=== PATIENT | male | born 1930 | race Caucasian/White ===

== ENCOUNTER 2017-01-28 12:45 | Emergency (ER) | payer OTHER ==
[2017-01-28] MEDS ORDERED: OXYMETAZOLINE HCL 150 SPRAY BTL ONE (13:17)
[2017-01-28] MEDS ORDERED: OXYMETAZOLINE HCL 150 SPRAY BTL NS ONE (13:24)
[2017-01-28] MEDS ORDERED: ONDANSETRON 4 MG TAB.RAPDIS PO ONE (13:47)
[2017-01-28] MEDS ORDERED: ONDANSETRON 4 MG TAB.RAPDIS ONE (13:49)
--- NOTE | 2017-01-28 14:16 | ERNOTE ---
[facility] Date of Service: 01/28/17 Presenting Symptoms: nosebleed Time Seen by Provider: 01/28/17 13:15 Source: patient Exam Limitations: no limitations - Immun/Allergies/Home Medications Immunizations: IMMUNIZATION HX Immunizations Up to Date Yes Allergies/Adverse Reactions: Allergies Allergy/AdvReac Type Severity Reaction Status Date / Time No Known Allergies Allergy Unverified 01/28/17 12:54 Home Medications: HOME MEDICATIONS Aspirin 325 mg PO DAILY 01/28/17 [Last Taken Unknown] Hydrochlorothiazide [Hydrodiuril] 25 mg PO DAILY 01/28/17 [Last Taken Unknown] Potassium Chloride [Klor-Con M10] 10 meq PO DAILY 01/28/17 [Last Taken Unknown] amLODIPine BESYLATE [Norvasc] 10 mg PO DAILY 01/28/17 [Last Taken Unknown] metFORMIN HCL [Glucophage] 500 mg PO BIDWM 01/28/17 [Last Taken Unknown] - History of Present Illness Narrative: Patient presents to the ED with a nosebleed. He had a nose bleed out of the right nose 3 weeks ago. He had had one further episode of bleeding since then from the right side. Since this am at 9am he has been having bleeding from the right nose down the back of his throat. He relates he feels nauseated from swallowing all the blood. Pressure was applied at triage and his bleeding has now stopped. No trauma. no fever. no ANTOINE. no CP or SOB. He takes a full ASA daily but no other blood thinners. Severity: Present: moderate ENT Location: Present: nose Prearrival Treatment: Present: no prearrival treatment Modifying Factors - Improves: Reports: nothing Modifying Factors - Worsens: Reports: nothing Associated Symptoms - ENT: Reports: denies symptoms. Denies: fever, sore throat Prior Treament: Denies: recently seen Review of Systems - Review of Systems Constitutional: Absent: fever Respiratory: Absent: shortness of breath Cardiology: Absent: chest pain Gastrointestinal/Abdominal: Absent: abdominal pain Neurological: Absent: weakness - Patient's Past Medical History Patient History - Medical: Diabetes Type 2 Patient History - Cardiac/Respiratory: Hypertension, Hyperlipidemia Patient History - Cancer: No Hx of Cancer Patient History - Surgical Procedures: No surgical history Patient History - Other: None - Social History Living Situations: home Psych History: No pertinent hx - Immunizations Immunizations Up to Date: Yes Physical Exam - Physical Exam General Appearance: Present: alert, no apparent distress Head Exam: Present: normal inspection, no evidence of injury Eye Exam: Normal inspection: bilateral, PERRL: bilateral Ears, Nose, Throat: Present: other - there is an area that appears to have been bleding right anterior nasal septum. Nothing to suggest posterior bleed. He had clotted blood in the posterior oropharynx but no active bleeding at this time. This appears to be an area of anterior bleeding.. Absent: pharyngeal erythema, pharyngeal swelling Respiratory: Present: no respiratory distress, normal breath sounds, no accessory muscle use, lungs clear Cardiovascular/Chest: Present: regular rate, rhythm Gastrointestinal/Abdominal: Present: nontender Back Exam: Present: normal range of motion Extremity Exam: Present: normal inspection Neurological Exam: Present: alert, normal mood/affect, no motor/sensory deficits Skin Exam: Present: normal color, warm/dry ED Progress - Vital Signs Patient's Vital Signs:: I have reviewed the patient's vital signs. Vital Signs: Vital Signs 01/28/17 01/28/17 01/28/17 12:49 13:17 13:44 Temperature 36.5 C Pulse Rate 74 67 67 Respiratory 12 20 Rate Blood Pressure 151/72 142/66 153/67 O2 Sat by Pulse 95 94 96 Oximetry - Progress/Reassessment Chief Complaint: Nose Bleed Progress Note-Subjective: 01/28/17 14:31 No further bleeding after cautery. he feels like going home. It appears he swallowed a fair amount of blood, was nauseated from this. Improved with Zofran. No evidence of posterior bleeding. No bleeding after cautery. He feels like going home. I do not feel labs are needed at this point. I discussed warning signs and reasons to return as well as the need for close f/u. Procedures Complications: Pt jens procedure well Comments: Epistaxis control right. Afrin utilized. Apparent anterior area of bleeding right nasal septum. Cautery utilized with no further bleeding. No blood down posterior oropharynx. No complications. No need for anesthesia. Epistaxis controlled. Departure Clinical Impression: Epistaxis - Departure Disposition: Home self-care Condition: Stable Instructions: Nosebleed, [id number] Additional Instructions: Rest. Avoid sneezing, scratching nose, straining or bending. Pressure for 20 minutes for any bleeding. Call [facility] am for an appointment time, also follow-up with your primary doctor this week. Return for bleeding or if your condition worsens or changes in any way.
[2017-01-28 14:48] VITALS: BP 135/61
== END 2017-01-28 14:40 | disposition home or self-care (01) ==
LOC: ER 12:45
PROC: 0W3Q7ZZ Control Bleeding in Respiratory Tract, Via Natural or Artificial Opening (ICD-10-PCS; principal; 2017-01-28)
DX: R04.0 Epistaxis (principal); E11.9 Type 2 diabetes mellitus without complications; I10 Essential (primary) hypertension